=== PATIENT | born 1990 | race Caucasian/White ===

== ENCOUNTER 2020-11-16 01:17 | Emergency (ER) | payer OTHER, SELFPAY ==
[2020-11-16 01:42] VITALS: BP 143/89; PULSE 93; RESP 24; TEMP 36.8; O2SAT 97; BMI 36.1
--- NOTE | 2020-11-16 03:23 | ED_ITS ---
HPI - SOB/Dyspnea General Chief Complaint: Dyspnea Stated Complaint: SoB for a few days Time Seen by Provider: 11/16/20 02:48 Source: patient Mode of arrival: ambulatory Limitations: no limitations History of Present Illness HPI Narrative: Patient comes emergency room complaining of shortness of breath/wheezing. Patient states that ran out of the inhalers. Patient usually uses Flovent and albuterol. Denies fever, no chills, no cough. Related Data Previous Rx's Medication Instructions Recorded albuterol sulfate 90 mcg/actuation 2 puff INHALATION Q4-6H PRN #8.5 g 11/16/20 aerosol inhaler (ProAir HFA) fluticasone propionate 50 1 inh INHALATION BID #60 ea 11/16/20 mcg/actuation blister powder for inhalation (Flovent Diskus) prednisone 50 mg tablet 50 mg PO DAILY #4 tab 11/16/20 Allergies Allergy/AdvReac Type Severity Reaction Status Date / Time Sulfa (Sulfonamide Allergy Hives Verified 11/16/20 01:41 Antibiotics) Review of Systems Review of Systems: Constitutional : No Weight loss, No Fever, No Chills, No Night Sweats, No Fatigue, No Malaise ENT/Mouth : No Hearing loss, No Ear Pain, No Nasal Congestion, No Sinus Pain, No Hoarseness, No sore throat, No Rhinorrhea, No Swallowing Difficulty Eyes: No Eye Pain, No Swelling, No Redness, No Foreign Body, No Discharge, No Vision Changes Cardiovascular : No Chest Pain, No SOB, No Dyspnea on Exertion, No Orthopnea, No Edema, No Palpitations Respiratory : No Cough, No Sputum, complaining of Wheezing, No Smoke Exposure, playing of Dyspnea Gastrointestinal : No Nausea, No Vomiting, No Diarrhea, No Constipation, No abdominal Pain, No Hematochezia, No Melena Genitourinary : no irregular bleeding, No Dysuria, No Urinary Frequency, No Hematuria, No Urinary Incontinence, No Urgency, No Flank Pain, No Urinary Flow Changes, No Hesitancy Musculoskeletal : No joint pain, No Myalgias, No Joint Swelling Skin : No Skin Lesions, No rash Neuro : No Weakness, No Numbness, No Paresthesias, No Loss of Consciousness, No Dizziness, No Headache Psych : No Anxiety/Panic, No Depression, No SI/HI/AH/VH, No Social Issues, Heme/Lymph: No Bruising, No Bleeding,No Lymphadenopathy Endocrine : No Polyuria, No Polydipsia, No Temperature Intolerance [facility] Past Medical History Medical History (Updated 11/16/20 @ 03:26 by Martha Snider MD) Asthma Social History Social History Advance Directives: No Advance Directives Information Provided: Yes Patient : No Physical Exam Vital Signs: Vital Signs: Last Vital Signs Temp 98.2 F 11/16/20 01:42 Pulse 114 11/16/20 05:56 Resp 3 11/16/20 05:56 BP 117/61 11/16/20 05:56 Pulse Ox 100 11/16/20 05:56 Body Mass Index 36.1 Const: Other: Appearance: Alert. Oriented X3. No acute distress. Eyes: Pupils equal, round and reactive to light. ENT: Pharynx normal. Neck: Normal inspection. Neck supple. No lymph nodes noted. No crepitus CVS: Normal heart rate and rhythm. Pulses normal. Normal S1 and S2 Respiratory: No respiratory distress. Bilateral wheezing, good air movement. Abdomen: Soft and nontender. No rigidity. No distention. good BS x4 Skin: Skin warm and dry. Normal skin color. Normal skin turgor. Extremities: No lower extremity edema. No lower extremity edema. No Lacerations. No Rash Neuro: Oriented X 3. No motor deficit. No sensory deficit. Moving all extermities. No slurred speech. Course Course Course Narrative: Patient received 2 treatments of albuterol, hour long. One dose of magnesium and Solu-Medrol. Patient feeling much better, patient has occasional wheezing on recheck. Oxygen saturation 100% on room air. Discharge Plan Discharge Clinical Impression: Asthma with exacerbation Qualifiers: Asthma severity: unspecified severity Asthma persistence: unspecified Qualified Code(s): J45.901 - Unspecified asthma with (acute) exacerbation Patient Disposition: Home, Self-Care Instructions: Asthma (ED) Additional Instructions: Please follow-up with your primary care physician tomorrow. If you have any worsening or new symptoms, please return to the emergency room or call 911 Prescriptions: New albuterol sulfate [ProAir HFA] 90 mcg/actuation HFA aerosol inhaler 2 puff inhalation Q4-6H PRN (Reason: shortness of breath or wheezing) Qty: 8.5 RF: 0 Flovent Diskus 50 mcg/actuation blister with device 1 inh inhalation BID Qty: 60 RF: 0 prednisone 50 mg tablet 50 mg PO DAILY Qty: 4 RF: 0
[2020-11-16] MEDS: methylPREDNISolone Sod Succ 125 MG/2 ML VIAL IVPUSH (03:38)
[2020-11-16 03:43] VITALS: BP 134/86; PULSE 86; RESP 16; O2SAT 98
[2020-11-16] MEDS: Albuterol Sulfate (0.083%) 2.5 MG/3 ML VIAL.NEB 10 MG INHALE ×2 (03:49→05:33)
[2020-11-16 03:52] VITALS: PULSE 85; O2SAT 95
[2020-11-16 05:36] VITALS: PULSE 102; O2SAT 98
[2020-11-16] MEDS: Magnesium Sulfate/H2O 2 GM/50 ML PIGGYBACK IV (05:53)
[2020-11-16 05:56] VITALS: BP 117/61; PULSE 114; RESP 3; O2SAT 100
== END 2020-11-16 07:22 | disposition home or self-care (01) ==
PROVIDERS: Emergency Provider Emergency Medicine
DX: J45.901 Unspecified asthma with (acute) exacerbation (principal); R06.00 Dyspnea, unspecified; Z79.899 Other long term (current) drug therapy
CPT/HCPCS: 94640; 94644; 94645; 96365; 96375; 99284; J2930; J3475

== ENCOUNTER 2022-05-16 17:52 | Emergency (ER) | payer OTHER, SELFPAY ==
--- NOTE | ~2022-05-16 | XR_ITS ---
EXAMINATION: XR CHEST CLINICAL INFORMATION: Shortness of breath COMPARISON: None TECHNIQUE: Frontal view of the chest was obtained. FINDINGS: No significant abnormality is noted involving the heart, lungs, mediastinum, bony thorax or soft tissues. XR/XR chest 1V IMPRESSION: Unremarkable examination.
[2022-05-16 18:45] VITALS: BP 149/87; PULSE 93; RESP 20; TEMP 36.8; O2SAT 97; BMI 38.6
--- NOTE | 2022-05-16 18:45 | ED.ASTHMA ---
HPI - Asthma General Chief Complaint: Asthma Stated Complaint: wheezing/ asthma/ difficulty breathing Time Seen by Provider: 05/16/22 18:52 Source: patient Mode of arrival: ambulatory Limitations: no limitations History of Present Illness HPI Narrative: This is a 31-year-old with history of asthma presenting with shortness of breath, wheezing for the past few days worsening. Patient tells me usually the symptoms are controlled with an albuterol inhaler however ran out and does not happen at home. Patient denies fevers, chills, chest pain, recent sick contacts, abdominal pain, nausea, vomiting, headache, vision changes, dizziness and weakness. Has never required intubation for asthma. Recently started working at a [employer] Related Data Previous Rx's Medication Instructions Recorded albuterol sulfate 90 mcg/actuation 2 puff inhalation Q4-6H PRN 11/16/20 aerosol inhaler (ProAir HFA) shortness of breath or wheezing #8.5 grams fluticasone propionate 50 1 inh inhalation BID #60 ea 11/16/20 mcg/actuation blister powder for inhalation (Flovent Diskus) prednisone 50 mg tablet 50 mg PO DAILY #4 tabs 11/16/20 albuterol sulfate 90 mcg/actuation 2 inh inhalation Q4-6H PRN 05/16/22 breath activated powder inhaler shortness of breath or wheezing #1 ea prednisone 20 mg tablet 40 mg PO DAILY 5 days #10 tabs 05/16/22 Allergies Allergy/AdvReac Type Severity Reaction Status Date / Time Sulfa (Sulfonamide Allergy Hives Verified 05/16/22 18:50 Antibiotics) Review of Systems Review of Systems: Constitutional : No Weight loss, No Fever, No Chills, No Fatigue, No Malaise ENT/Mouth : No sore throat, No Rhinorrhea Eyes: No Eye Pain, No Swelling, No Redness Cardiovascular : No Chest Pain, + SOB, No Dyspnea on Exertion, No Orthopnea, No Edema, No Palpitations Respiratory : No Cough, No Sputum, + Wheezing Gastrointestinal : No Nausea, No Vomiting, No Diarrhea, No Constipation, No abdominal Pain, No Hematochezia, No Melena Genitourinary : No Dysuria, No Urinary Frequency, No Hematuria, Musculoskeletal : No joint pain, No Myalgias, No Joint Swelling Skin : No Skin Lesions, No rash Neuro : No Weakness, No Numbness, No Dizziness, No Headache Psych : No Anxiety/Panic, No Depression All other systems reviewed and are negative Yes all other systems are reviewed and are negative [facility] Past Medical History Attestation statement: The following information was validated with the patient. Source: old records reviewed and nursing notes reviewed Medical History (Updated 05/16/22 @ 18:53 by OSVALDO Ventura) Asthma Social History Social History Advance Directives: No Advance Directives Information Provided: No Physical Exam Vital Signs: Vital Signs: Last Vital Signs Temp 98.3 F 05/16/22 18:45 Pulse 93 05/16/22 18:45 Resp 20 05/16/22 18:45 BP 149/87 05/16/22 18:45 Pulse Ox 97 05/16/22 18:45 O2 Del Method 05/16/22 18:45 BMI result Body Mass Index 38.6 vss Appearance: Alert.? Oriented X3.? No acute distress.? Speaking in full sentences controlling secretions well. Head: Normocephalic, atraumatic, no step-offs or deformities Eyes: Pupils equal, round and reactive to light.? ENT: Pharynx normal.? Neck: Normal inspection.? Neck supple.? CVS: Normal heart rate and rhythm.? Pulses normal.? Respiratory: No respiratory distress.? Patient with moderate wheezing throughout. Abdomen: Soft and nontender.? Skin: Skin warm and dry.? Normal skin color.? Normal skin turgor.? Extremities: No lower extremity edema.? No calf ttp. 5/5 strength to bilateral upper and lower extremities Back: No midline tenderness, no C-spine tenderness, full range of motion, no CVA tenderness bilaterally Neuro: Oriented X 3.? No motor deficit.? No sensory deficit. CN 2-12 intact Course Course Course Narrative: This is an RME: Additional HPI, ROS, PE not included below will be deferred to primary provider. 31-year-old events with complaints of shortness of breath, wheezing, ran out of inhaler, history of asthma. Has been going on for few days intermittently. Has never required intubation for asthma. Denies fevers, chills, recent sick contacts chest pain, shortness of breath, nausea, vomiting, abdominal pain. Physical exam diffuse wheezing throughout. Vital signs stable. No signs of respiratory distress. Will order x-ray, viral testing and albuterol. Reevaluation(s) Reevaluation #1: X-ray unremarkable. Viral test are still pending. Upon re-evaluation after inhaler patient's wheezing much improved now mild wheezing, patient appears comfortable speaking in full sentences continues to saturate well on room air. Tells me she is feeling a lot better. Will be discharged home with albuterol and prednisone likely asthma exacerbation. Again I did not suspect PE on this patient. Educated patient on diagnosis and treatment plan, answered all question, patient verbalizes understanding. At this time patient will be discharged home, advised to return with new or worsening symptoms. Educated on worrisome signs and symptoms and when to return. At this time I feel comfortable discharge home. Time: 19:39 Medications Administered Discontinued Medications Generic Name Dose Route Start Last Admin Trade Name Za PRN Reason Stop Dose Admin Albuterol Sulfate 4 puff 05/16/22 18:50 05/16/22 19:01 Albuterol Sulfate 90 Mcg 8 Gm Inhaler INHALE 05/16/22 18:51 4 puff ONCE ONE Administration Prednisone 40 mg 05/16/22 18:50 05/16/22 19:00 Prednisone 20 Mg Tablet PO 05/16/22 18:51 40 mg ONCE ONE Administration Medical Decision Making Medical Decision Making [facility] Narrative: 1851 31-year-old presents with shortness of breath and wheezing for the past few days, usually improved by an inhaler however ran out. Physical exam with wheezing throughout, vital signs stable saturating 98% on room air. Speaking full sentences controlling secretions well. Comfortable appearing. Likely asthma versus viral infection although asthma more likely. Patient PERC negative, unlikely that this is a PE. Patient without risk factors. Plan at this time is chest x-ray, viral testing. Will give 4 puffs of albuterol now discharge patient home on albuterol and prednisone. Differential Diagnosis Differential Diagnoses: The differential diagnosis associated with the presentation includes Likely asthma versus viral infection although asthma more likely. Patient PERC negative, unlikely that this is a PE. Patient without risk factors. Admission/Observation Consideration of admission/observation: Escalation of care including admission/observation considered Not indicated Independent Interpretation I performed an independent interpretation of an: Plain X-Ray (Unremarkable) Radiology Impression Discussion of test interpretation with radiology: I have reviewed the radiologist's reading. Core Measures AMI core measures followed: Yes Measure exclusions: not indicated Critical Care Time Critical Care Time Critical Care Time: No Discharge Plan Discharge Clinical Impression: Asthma Patient Disposition: Home, Self-Care Instructions: Asthma (ED), Wheezing (ED) Additional Instructions: Take your medications as prescribed. If you were prescribed antibiotics today, it is important that you take your medication to their entirety, do not skip any doses, do not finish them early. Follow-up with your primary care provider this week. Return to the emergency department with new or worsening symptoms. Such as fevers, chills, chest pain, shortness of breath, nausea, vomiting, dizziness, headache, vision changes, lethargy In case of emergency call 911 Prescriptions: New albuterol sulfate 90 mcg/actuation aerosol powdr breath activated 2 inh inhalation Q4-6H PRN (Reason: shortness of breath or wheezing) Qty: 1 0RF prednisone 20 mg tablet 40 mg PO DAILY 5 Days Qty: 10 0RF No Action albuterol sulfate [ProAir HFA] 90 mcg/actuation HFA aerosol inhaler 2 puff inhalation Q4-6H PRN (Reason: shortness of breath or wheezing) Qty: 8.5 0RF Flovent Diskus 50 mcg/actuation blister with device 1 inh inhalation BID Qty: 60 0RF prednisone 50 mg tablet 50 mg PO DAILY Qty: 4 0RF Referrals: Physician,Unknown J [Primary Care Provider] - 2 days Stand Alone Forms: Work/School Release
[2022-05-16] MEDS: predniSONE 20 MG TABLET 40 MG PO (19:00)
[2022-05-16] MEDS: Albuterol Sulfate 90 MCG 8 GM INHALER 4 PUFF INHALE (19:01)
[2022-05-16 19:40] LABS: COVID-19 Test Negative; IDNOW Serial# 55D5AD1C; IDNOW Serial# 6674DD1D; Influenza A Negative; Influenza B2 Negative
== END 2022-05-16 19:44 | disposition home or self-care (01) ==
PROVIDERS: Physician Assistant; Emergency Provider Emergency Medicine
DX: J45.909 Unspecified asthma, uncomplicated (principal); R06.02 Shortness of breath; Z20.822 Contact with and (suspected) exposure to COVID-19; Z20.828 Contact with and (suspected) exposure to other viral communicable diseases
CPT/HCPCS: 71045; 87502; 87635; 99282; 99283